=== PATIENT | male | born 1990 | race Caucasian/White ===

== ENCOUNTER 2016-08-17 15:06 | Emergency (ER) | payer OTHER ==
[2016-08-17 15:10] VITALS: BP 114/60; PULSE 92; RESP 18; TEMP 98.4; O2SAT 96
--- NOTE | 2016-08-17 15:23 | EDPHY ---
H & P Time Seen by Provider: 08/17/16 15:11 HPI/ROS: Chief complaint. Blood in urine HPI. 26-year-old male presents with urinary frequency and dysuria and some blood in his urine beginning this morning. Last few days he has been fine. Had some vague right lower abdominal pain this morning this not present now. No flank pain. No fever vomiting. No similar symptoms previously. ROS Constitutional. no fever/chills, no weakness Eyes. no problems with vision ENT. no sore throat, no nasal drainage Cardiovascular. no chest pain Respiratory. no shortness of breath, no cough Abdominal. no abdominal pain, no nausea/vomiting, no diarrhea . Urinary frequency and burning with urination. Blood in urine MS. no calf pain/swelling, no neck/back pain, no joint pain Skin. no rash Lymph. no swollen glands Neuro. no headache, no dizziness, no difficulty walking or with speech Past Medical/Surgical History: Low thyroid Social History: Single, nonsmoker, no alcohol Smoking Status: Never smoked Physical Exam: General Appearance: Alert well-developed male mild distress vital signs are stable Eyes: Pupils equal and round no pallor or injection. ENT, Mouth: Mucous membranes are moist. Respiratory: There are no retractions, lungs are clear to auscultation. Cardiovascular: Regular rate and rhythm. Gastrointestinal: Abdomen is soft and nontender, no masses, bowel sounds normal. No flank tenderness. No right lower quadrant tenderness or suprapubic tenderness Neurological: Awake and alert, sensory and motor exams grossly normal. Skin: Warm and dry, no rashes. Musculoskeletal: Neck is supple nontender. Extremities symmetrical, full range of motion. Psychiatric: Patient is oriented X 3, there is no agitation. Constitutional: Initial Vital Signs Temperature (C) 36.9 C 08/17/16 15:07 Heart Rate 92 08/17/16 15:07 Respiratory Rate 18 08/17/16 15:07 Blood Pressure 114/60 08/17/16 15:07 O2 Sat (%) 96 08/17/16 15:07 O2 Delivery Mode Room Air Allergies/Adverse Reactions: No Known Allergies Allergy (Unverified 08/17/16 15:10) Home Medications: Medication Instructions Recorded Cephalexin [Keflex (*)] 500 mg PO TID #21 cap 08/17/16 Dessicated Thyroid 05/09/17 Medical Decision Making ED Course/Re-evaluation: Re-evaluation at 3:35 p.m.. Patient is stable. Patient and I discussed lab evaluation, treatment plan, criteria for return, importance of follow-up and further evaluation. He expresses understanding and agreement Differential Diagnosis: I considered urinary tract infection including pyelonephritis. I considered kidney stone. - Data Points Laboratory Results: 08/17/16 15:14 Urine Color YELLOW Urine Appearance HAZY Urine pH 6.0 (5.0-7.5) Ur Specific [place] 1.011 (1.002-1.030) Urine Protein 2+ H (NEGATIVE) Urine Ketones 1+ H (NEGATIVE) Urine Blood 3+ H (NEGATIVE) Urine Nitrate NEGATIVE (NEGATIVE) Urine Bilirubin NEGATIVE (NEGATIVE) Urine Urobilinogen NEGATIVE EU EU (0.2-1.0) Ur Leukocyte Esterase 1+ H (NEGATIVE) Urine RBC 50-182 /hpf H /hpf (0-3) Urine WBC 50-182 /hpf H /hpf (0-3) Ur Epithelial Cells TRACE /lpf /lpf (NONE-1+) Urine Mucus TRACE /lpf /lpf (NONE-1+) Ur Culture Indicated? INDICATED H (NI) Urine Glucose NEGATIVE (NEGATIVE) Departure - Departure Disposition: Home, Routine, Self-Care Clinical Impression: Urinary tract infection Qualifiers: Urinary tract infection type: acute cystitis Hematuria presence: with hematuria Qualified Code(s): N30.01 - Acute cystitis with hematuria Condition: Good Instructions: Urinary Tract Infection in Men (ED) Additional Instructions: Drink plenty of fluids and stay hydrated. Cephalexin as antibiotic. Return for fever, flank pain, vomiting. Recheck in 2-3 days if not improving Referrals: MILENA MOORE [Primary Care Provider] - 2-3 days, if not improved Prescriptions: Cephalexin [Keflex (*)] 500 mg PO TID #21 cap
[2016-08-17 15:29] LABS: COLOR YELLOW; LEUKOCYTE ESTERASE,URINE 1+ (NEGATIVE); NITRITE,URINE NEGATIVE (NEGATIVE)
[2016-08-17 15:36] LABS: MUCUS TRACE /lpf (NONE-1+); RBC,URINE 50-182 /hpf (0-3); WBC,URINE 50-182 /hpf (0-3)
== END 2016-08-17 15:55 | disposition home or self-care (01) ==
DX: N30.01 Acute cystitis with hematuria (principal); B96.89 Other specified bacterial agents as the cause of diseases classified elsewhere